=== PATIENT | male | born 1970 | race Caucasian/White ===

== ENCOUNTER 2017-12-05 22:18 | Emergency (ER) | payer OTHER ==
[~2017-12-05] VITALS: Ht 195.6 cm; Wt 138.6 kg
[~2017-12-05 22:18] MED LIST: HCTZ; LORTAB PO; TOPROL; [UNRECOGNIZED DRUG - REMARK]
[2017-12-05] MEDS ORDERED: TOPROL XL100 MG PO (22:31)
[2017-12-05] MEDS ORDERED: CLARITIN 1010 MG/TAB PO (22:32)
[2017-12-05] MEDS ORDERED: HCTZ 25MG TAB25 MG PO (22:32)
[2017-12-05 23:25] LABS: BASO # 0.1 (0.0-0.2); BASO % 0.6 % (0.0-2.0); EOS # 0.1 (0.0-0.7); EOS % 0.9 % (0-4.0); GRAN # 6.7 (1.4-6.5); GRAN % 57.9 % (42.2-75.2); HEMATOCRIT 46.8 % (42.0-52.0); HEMOGLOBIN 16.4 g/dl (13.5-18.0); LYMPH # 3.4 (1.2-3.4); LYMPH % 29.6 % (20.0-51.0); MEAN CELL VOLUME 91 fl (80.0-100.0); MEAN CORPUSCULAR HEMOGLOBIN 32 pg (27.0-31.0); MEAN CORPUSCULAR HGB CONC 35 g/dl (33.0-37.0); MEAN PLATELET VOLUME 9.6 fl (7.4-10.4); MONO # 1.2 (0.1-0.6); MONO % 10.7 % (1.7-9.3); PLATELET COUNT 281 K/mm3 (130-400); RED BLOOD COUNT 5.16 M/mm3 (4.20-5.60); REDCELL DISTRIBUTION WIDTH-CV 12.2 % (11.5-14.5)
[2017-12-05 23:34] LABS: ALANINE AMINOTRANSFERASE 41 U/L (21-72); ALBUMIN 4.6 gm/dL (3.5-5.0); ALKALINE PHOSPHATASE 78 U/L (50-136); ANION GAP 15 mmol/L (7-16); AST,SGOT 30 U/L (15-37); BILIRUBIN,TOTAL 0.4 mg/dL (0.0-1.0); BLOOD UREA NITROGEN 15 mg/dL (9-20); CALCIUM 9.7 mg/dL (8.4-10.2); CARBON DIOXIDE 27 mmol/L (22-30); CHLORIDE 101 mmol/L (98-107); GLUCOSE 142 mg/dL (74-106); POTASSIUM 3.4 mmol/L (3.4-5.0); SODIUM 143 mmol/L (137-145); TOTAL PROTEIN 8.9 gm/dL (6.4-8.2)
[2017-12-05 23:48] LABS: TROPONIN-I < 0.012 ng/mL (0.000-0.034)
[2017-12-06 00:56] VITALS: BP 135/84; PULSE 90
== END 2017-12-06 00:56 | disposition home or self-care (01) ==
LOC: COL.ER 22:18
PROVIDERS: Nurse Practitioner
DX: R00.2 Palpitations (principal); I10 Essential (primary) hypertension; Z86.79 Personal history of other diseases of the circulatory system